=== PATIENT | female | born 1945 | race African-American/Black ===

== ENCOUNTER 2018-03-12 07:37 | Day surgery (SDC) | payer MEDICARE ==
[2018-03-10 11:14] VITALS: BMI 29.1
[~2018-03-12 07:37] MED LIST: LACTATED RINGERS 1,000 ML IV SCH
[2018-03-12] MEDS ORDERED: LIDOCAINE 1% 20 ML VIAL (10MG/ML) FOR IV START INTRADERMA ONE (08:29)
[2018-03-12 08:31] VITALS: RESP 16; TEMP 98.3
[2018-03-12] MEDS ORDERED: ONDANSETRON 4 MG/2 ML VIAL IVP ONE (08:52)
[2018-03-12] MEDS ORDERED: MIDAZOLAM 2 MG/2 ML VIAL ONE (08:53)
[2018-03-12] MEDS ORDERED: fentaNYL (PF) 50 MCG/ML 2 ML AMP ONE (08:53)
[2018-03-12] MEDS ORDERED: GLYCOPYRROLATE 0.2 MG/ML 2 ML VIAL ONE (08:53)
[2018-03-12] MEDS ORDERED: PROPOFOL 10 MG/ML 20 ML VIAL IV ONE (08:53)
--- NOTE | 2018-03-12 09:08 | P.PCN ---
Date of Procedure: 03/12/18 Procedure(s) Performed: BRIEF HISTORY: Patient is a 72-year-old pleasant white female, scheduled for an elective colonoscopy as a part of evaluation of prior history of colon polyps and intermittent diarrhea. Her last colonoscopy was in May and was noted to have large polyps with a tubular adenoma. PROCEDURE PERFORMED: Colonoscopy. PREOPERATIVE DIAGNOSIS: History of colon polyps/IBS. IV sedation per Anesthesia. PROCEDURE: After informed consent was obtained, the patient, was brought into the endoscopy unit. IV sedation was administered by Anesthesia under continuous monitoring. Digital rectal examination was normal. Initially the Olympus CF- 160 flexible video colonoscope was then inserted in the rectum, gradually advanced into the cecum without any difficulty. Careful examination was performed as the scope was gradually being withdrawn. Ileocecal valve and the appendiceal orifice were visualized and appeared normal. Prep was excellent. Mucosa of the cecum, ascending colon, transverse colon, descending colon, sigmoid colon, and rectum appeared normal. Scattered sigmoid diverticula seen. Retroflexion was performed in the rectum and small internal hemorrhoids were seen. The patient tolerated the procedure well. IMPRESSION: Normal-appearing colon from rectum to cecum with no evidence of colorectal neoplasia Scattered sigmoid diverticulosis Small internal hemorrhoids. RECOMMENDATIONS: Findings of this examination were discussed with the patient as well as her family. She was advised to have a repeat surveillance colonoscopy in 5 years because of prior history of colon polyps.
[2018-03-12 09:27] VITALS: BP 100/64; PULSE 78
== END 2018-03-12 10:02 | disposition home or self-care (01) ==
LOC: ORWHC2ENDO 07:37
PROVIDERS: ATTEND Internal Medicine Gastroenterology
DX: K57.30 Diverticulosis of large intestine without perforation or abscess without bleeding (principal); K64.8 Other hemorrhoids; K58.9 Irritable bowel syndrome, unspecified; K21.9 Gastro-esophageal reflux disease without esophagitis; Z86.010 Personal history of colon polyps; Z79.890 Hormone replacement therapy; Z79.899 Other long term (current) drug therapy; I10 Essential (primary) hypertension; Z87.891 Personal history of nicotine dependence; Z88.7 Allergy status to serum and vaccine
CPT/HCPCS: 45378; J2250; J2405; J3010; J2704

== ENCOUNTER → 2020-04-01 | Outpatient (CLI) | payer MEDICARE ==
--- NOTE | 2020-04-04 08:42 | MM ---
Reason for exam: screening (asymptomatic). Last mammogram was performed 13 years and 7 months ago. History: Patient is postmenopausal. Took hormonal contraceptives for 10 years beginning at age 21. Took estrogen for 1 year beginning at age 56. Took progesterone for 1 year beginning at age 56. Physical Findings: A clinical breast exam by your physician is recommended on an annual basis and results should be correlated with mammographic findings. MG 3D Screening Mammo W/Cad Bilateral CC and MLO view(s) were taken. Prior study comparison: August 22, 2006, bilateral screening mammogram w/CAD. June 27, 2005, bilateral screening mammogram w/CAD. The breast tissue is heterogeneously dense. This may lower the sensitivity of mammography. Benign appearing bilateral calcifications. No significant changes when compared with prior studies. ASSESSMENT: Benign, BI-RAD 2 RECOMMENDATION: Routine screening mammogram of both breasts in 1 year.
== END | disposition home or self-care (01) ==
LOC: RADMAMWWP 11:02
PROVIDERS: ATTEND Obstetrics & Gynecology
DX: Z12.31 Encounter for screening mammogram for malignant neoplasm of breast (principal)
CPT/HCPCS: 77063; 77067

== ENCOUNTER 2020-10-18 19:13 | Inpatient (IN) | payer MEDICARE ==
[2020-10-18] MEDS ORDERED: SODIUM CHLORIDE 0.9% 1,000 ML IV STA (19:16)
--- NOTE | 2020-10-18 19:19 | ED ---
General Adult HPI - General Stated complaint: STEMI Time Seen by Provider: 10/18/20 19:15 - History of Present Illness Initial comments: Dictation was produced using [employer] dictation software. please excuse any grammatical, word or spelling errors. This patient was cared for during a federal and state declared state of emergency secondary to Covid 19 Chief Complaint: 75-year-old male presents with ST segment elevation ND History of Present Illness: Patient is a 75-year-old female she has past medical history of hypertension diabetes disease asthma. She is brought in by EMS for acute ST segment elevation ND. Patient was at home proximal upper to arrival when she developed like sensation of a 50 pound pressure on her chest. She does report associated nausea, vomiting and diaphoresis. His pain radiates to her back. She denies any numbness and with paresthesias to the arms or legs. She denies any history of coronary artery disease. She feels mildly short of breath. She received aspirin and nitro by prehospital providers. The ROS documented in this emergency department record has been reviewed and confirmed by me. Those systems with pertinent positive or negative responses have been documented in the HPI. All other systems are other negative and/or noncontributory. PHYSICAL EXAM: General Impression: Alert and oriented x3, distress secondary to pain HEENT: Normocephalic atraumatic, extra-ocular movements intact, pupils equal and reactive to light bilaterally, mucous membranes moist. Cardiovascular: Heart regular rate and rhythm no murmurs Chest: Able to complete full sentences, no retractions, no tachypnea Abdomen: abdomen soft, non-tender, non-distended, no organomegaly Musculoskeletal: Pulses present and equal in all extremities, no peripheral edema Motor: no focal deficits noted Neurological: CN II-XII grossly intact, no focal motor or sensory deficits noted Skin: Intact with no visualized rashes Psych: Normal affect and mood ED course: 75-year-old male presents to the emergency department for ST segment elevation ND. She has no features of acute aortic dissection. As upon arrival are within acceptable limits. Prehospital EKGs were reviewed showing inferior myocardial infarction. Code STEMI was activated prior to patient's arrival. Right-sided EKG showed no ST elevations in the right-sided lateral precordial leads. Patient's ST segment elevation ND appears to be inferior. Patient ordered for Nitropaste. Case was discussed with Dr. Peterson reviewed EKG immediately after EKG was performed. No suspicion of acute aortic dissection. She has normal and symmetrical pulses in her bilateral upper extremities she is nonhypertensive she does not have any signs of cardiac and not and she does not describe sharp chest pain. Chest x- ray shows no acute processes. Patient be disposition to pharmaceutical laboratory technician emergently for cardiac catheterization likely percutaneous intervention. Patient be admitted to [facility] physician Dr. Wright. EKG interpretation: Ventricular rate 65, normal sinus rhythm,. Interval and 60, QRS 80, QTC 372. No WI prolongation, no QTC prolongation, ST segment elevation in inferior leads with cervical changes and high lateral leads and - Related Data Home Medications Medication Instructions Recorded Confirmed Albuterol Inhaler (Mhu) [Ventolin 2 puff INHALATION DIRECTED PRN 05/03/14 03/12/18 Hfa Inhaler (Mhu)] Levothyroxine Sodium [Synthroid] 100 mcg PO QAM 05/03/14 03/10/18 Dicyclomine [Bentyl] 10 mg PO TID 03/10/18 03/10/18 Omeprazole 20 mg PO AC-BRKFST 03/10/18 03/10/18 Spironolactone 50 mg PO DAILY 03/10/18 03/10/18 Valsartan/Hydrochlorothiazide 1 each PO DAILY 03/10/18 03/10/18 [Valsartan-Hctz 320-25 mg Tab] Allergies Allergy/AdvReac Type Severity Reaction Status Date / Time Tetanus Vaccines and Toxoid Allergy Rash/Hives Verified 10/18/20 19:19 [Tetanus Vaccines & Toxoid] Review of Systems ROS Statement: Those systems with pertinent positive or pertinent negative responses have been documented in the HPI. ROS Other: All systems not noted in ROS Statement are negative. Past Medical History Past Medical History: Asthma, GERD/Reflux, Hypertension, Thyroid Disorder History of Any Multi-Drug Resistant Organisms: None Reported Past Surgical History: Appendectomy, Cholecystectomy, Hysterectomy, Joint Replacement Additional Past Surgical History / Comment(s): THYROIDECTOMY; R Knee replacement Past Anesthesia/Blood Transfusion Reactions: Postoperative Nausea & Vomiting (PONV) Past Psychological History: No Psychological Hx Reported Past Alcohol Use History: Occasional Additional Past Alcohol Use History / Comment(s): QUIT SMOKING 1974 SMOKED FOR 10 YRS OF AND OFF Past Drug Use History: None Reported - Past Family History Mother Family Medical History: No Reported History Course Vital Signs 10/18/20 10/18/20 19:17 19:33 Temperature 98.6 F Pulse Rate 80 80 Respiratory 18 18 Rate Blood Pressure 115/76 130/76 O2 Sat by Pulse 96 97 Oximetry Medical Decision Making - Lab Data Result diagrams: 10/18/20 19:21 Lab Results 10/18/20 Range/Units 19:21 WBC 14.4 H (3.8-10.6) k/uL RBC 4.93 (3.80-5.40) m/uL Hgb 13.8 (11.4-16.0) gm/dL Hct 43.5 (34.0-46.0) % MCV 88.3 (80.0-100.0) fL MCH 28.0 (25.0-35.0) pg MCHC 31.7 (31.0-37.0) g/dL RDW 13.9 (11.5-15.5) % Plt Count 329 (150-450) k/uL MPV 8.1 Neutrophils % 52 % Lymphocytes % 39 % Monocytes % 5 % Eosinophils % 1 % Basophils % 1 % Neutrophils # 7.5 (1.3-7.7) k/uL Lymphocytes # 5.6 H (1.0-4.8) k/uL Monocytes # 0.7 (0-1.0) k/uL Eosinophils # 0.2 (0-0.7) k/uL Basophils # 0.1 (0-0.2) k/uL Disposition Clinical Impression: ST elevation myocardial infarction (STEMI) Disposition: ADMITTED IP TO THIS HOSP Condition: Critical Referrals: Jj Coronado MD [Primary Care Provider] - 1-2 days Decision Time: 19:38
[2020-10-18] MEDS ORDERED: NITROGLYCERIN OINT 1 INCH/GM PACKET TOPICAL STA (19:25)
[2020-10-18 19:28] LABS: Basophils # (A) 0.1 k/uL (0-0.2); Basophils % (A) 1 %; Eosinophils # (A) 0.2 k/uL (0-0.7); Eosinophils % (A) 1 %; HCT 43.5 % (34.0-46.0); HGB 13.8 gm/dL (11.4-16.0); Lymphocytes # (A) 5.6 k/uL (1.0-4.8); Lymphocytes % (A) 39 %; MCHC 31.7 g/dL (31.0-37.0); MCV 88.3 fL (80.0-100.0); Mean Platelet Volume 8.1; Monocytes # (A) 0.7 k/uL (0-1.0); Monocytes % (A) 5 %; Neutrophils # (A) 7.5 k/uL (1.3-7.7); Neutrophils % (A) 52 %; Platelet Count 329 k/uL (150-450); RBC 4.93 m/uL (3.80-5.40); RDW 13.9 % (11.5-15.5); WBC 14.4 k/uL (3.8-10.6)
[2020-10-18] MEDS ORDERED: NALOXONE 0.4 MG/ML 1 ML VIAL IV PRN (19:28)
[2020-10-18] MEDS ORDERED: HEPARIN SODIUM 1,000 UN/ML (10ML VL) IV PRN (19:29)
[2020-10-18] MEDS ORDERED: HEPARIN SODIUM 1,000 UN/ML (10ML VL) IV ONE (19:29)
[2020-10-18] MEDS ORDERED: LIDOCAINE 1% INJ 10MG/ML (20 ML MDV) ONE (19:33)
[2020-10-18] MEDS ORDERED: VERAPAMIL 2.5 MG/ML 2 ML AMP ONE (19:34)
[2020-10-18] MEDS ORDERED: IV FLUID CONTINUATION 300 ML IV ONE (19:39)
[2020-10-18] MEDS ORDERED: SODIUM CHLORIDE 0.9% 500 ML 500 ML IV ONE (19:40)
[2020-10-18 19:41] LABS: Albumin 3.8 g/dL (3.5-5.0); Calcium 9.3 mg/dL (8.4-10.2); Partial Thromboplastin Time 22.9 sec (22.0-30.0); Prothrombin Time 10.3 sec (9.0-12.0); Total Bilirubin 0.4 mg/dL (0.2-1.3); Total Protein 6.5 g/dL (6.3-8.2)
[2020-10-18] MEDS ORDERED: fentaNYL (PF) 50 MCG/ML 2 ML AMP IV ONE (19:50)
[2020-10-18] MEDS ORDERED: fentaNYL (PF) 50 MCG/ML 2 ML AMP ONE (19:51)
[2020-10-18] MEDS: LIDOCAINE 1% INJ 10MG/ML (20 ML MDV) SQ ONE ×2 (19:52→19:59)
[2020-10-18] MEDS ORDERED: MIDAZOLAM 2 MG/2 ML VIAL IV ONE ×2 (19:52)
[2020-10-18] MEDS ORDERED: VERAPAMIL SYRINGE (5 MG/10 ML) INTRAARTER ONE (19:53)
[2020-10-18] MEDS ORDERED: BIVALIRUDIN 250 MG in SODIUM CHLORIDE 0.9% 50 ML IV ONE (20:08)
[2020-10-18] MEDS ORDERED: BIVALIRUDIN BOLUS 250 MG/50 ML IV ONE (20:08)
[2020-10-18] MEDS ORDERED: CLOPIDOGREL 75 MG TAB PO ONE (20:09)
[2020-10-18] MEDS ORDERED: CLOPIDOGREL 75 MG TAB ONE (20:09)
--- NOTE | 2020-10-18 20:14 | XR ---
EXAMINATION TYPE: XR chest 1V portable DATE OF EXAM: 10/18/2020 HISTORY: Shortness of breath. COMPARISON: None. TECHNIQUE: Single view of the chest is submitted. FINDINGS: Demonstrated are scattered senescent parenchymal change. There is no evidence for focal infiltrate. The heart is stable. Hilar and mediastinal structures are within normal limits. Degenerative changes are seen of the dorsal spine. IMPRESSION: 1. Chronic changes without evidence for acute pulmonary disease.
--- NOTE | 2020-10-18 20:14 | P.CRDCN ---
History of Present Illness Consult date: 10/18/20 History of present illness: This is a 75-year-old female with history of hypertension and hypothyroidism who was brought to the emergency room with complaints of chest pain about an hour prior to admission. EKG showed acute ST-T changes consistent with inferior wall IL. Patient is still having severe chest pain. She was advised to have cardiac catheterization with the intention of primary intervention. Most of previous myocardial infarction. No history of known CVA. Most of the information is gathered from patient's chart and the ER physicians the medication. At the time of my examination patient is on the table still complaining of severe pain, in the clinical laboratory director. Review of Systems Not obtained Past Medical History Past Medical History: Asthma, GERD/Reflux, Hypertension, Thyroid Disorder History of Any Multi-Drug Resistant Organisms: None Reported Past Surgical History: Appendectomy, Cholecystectomy, Hysterectomy, Joint Replacement Additional Past Surgical History / Comment(s): THYROIDECTOMY; R Knee replacement Past Anesthesia/Blood Transfusion Reactions: Postoperative Nausea & Vomiting (PONV) Past Psychological History: No Psychological Hx Reported Past Alcohol Use History: Occasional Additional Past Alcohol Use History / Comment(s): QUIT SMOKING 1974 SMOKED FOR 10 YRS OF AND OFF Past Drug Use History: None Reported - Past Family History Mother Family Medical History: No Reported History Medications and Allergies Home Medications Medication Instructions Recorded Confirmed Type Levothyroxine Sodium [Synthroid] 100 mcg PO QAM 05/03/14 10/18/20 History Dicyclomine [Bentyl] 10 mg PO TID PRN 03/10/18 10/18/20 History Albuterol Sulfate [Ventolin HFA] 2 puff INHALATION RT-Q6H PRN 10/18/20 10/18/20 History Amitriptyline HCl 25 mg PO HS 10/18/20 10/18/20 History Valsartan/Hydrochlorothiazide 1 tab PO DAILY 10/18/20 10/18/20 History [Diovan Hct 320-12.5 mg Tab] Allergies Allergy/AdvReac Type Severity Reaction Status Date / Time Tetanus Vaccines and Toxoid Allergy Rash/Hives Verified 10/18/20 19:38 [Tetanus Vaccines & Toxoid] Physical Exam Vitals: Vital Signs Temp Pulse Resp BP Pulse Ox 10/18/20 19:33 80 18 130/76 97 10/18/20 19:17 98.6 F 80 18 115/76 96 Intake and Output 04/20/21 04/20/21 04/20/21 06:59 14:59 22:59 Other: Weight 79.832 kg GENERAL EXAM: Patient is alert and oriented and in [place] distress HEENT: Normocephalic. Normal reaction of pupils, equal size, normal range of extraocular motion. No erythema or exudates in the throat. NECK: No masses, no nuchal rigidity. CHEST: No chest wall deformity. LUNGS: Equal air entry with no crackles or wheeze. HEART: S1 and S2 normal with no audible mumurs or gallops. Regular rhythm, femorals equal on both sides.. ABDOMEN: Soft SKIN: No rashes CENTRAL NERVOUS SYSTEM: No focal deficits. EXTREMITIES: No cyanosis, clubbing or edema. Results 10/18/20 19:21 10/18/20 19:21 Cardiac Enzymes 10/18/20 10/18/20 Range/Units 19:21 19: AST 25 (14-36) U/L Troponin I <0.012 (0.000-0.034) ng/mL Coagulation 10/18/20 Range/Units 19:21 PT 10.3 (9.0-12.0) sec APTT 22.9 (22.0-30.0) sec CBC 10/18/20 Range/Units 19:21 WBC 14.4 H (3.8-10.6) k/uL RBC 4.93 (3.80-5.40) m/uL Hgb 13.8 (11.4-16.0) gm/dL Hct 43.5 (34.0-46.0) % Plt Count 329 (150-450) k/uL Comprehensive Metabolic Panel 10/18/20 Range/Units 19:21 Sodium 135 L (137-145) mmol/L Potassium 4.0 (3.5-5.1) mmol/L Chloride 102 (98-107) mmol/L Carbon Dioxide 26 (22-30) mmol/L BUN 17 (7-17) mg/dL Creatinine 1.36 H (0.52-1.04) mg/dL Glucose 134 H (74-99) mg/dL Calcium 9.3 (8.4-10.2) mg/dL AST 25 (14-36) U/L ALT 17 (4-34) U/L Alkaline Phosphatase 62 (38-126) U/L Total Protein 6.5 (6.3-8.2) g/dL Albumin 3.8 (3.5-5.0) g/dL Current Medications Generic Name Dose Route Start Last Admin Trade Name Freq PRN Reason Stop Dose Admin Heparin Sodium (Porcine) 0 unit 10/18/20 19:29 Heparin Sodium 1,000 Un/Ml (10ml Vl) IV PER PROTOCOL PRN Low PTT Protocol Sodium Chloride 1,000 mls @ 999 mls/hr 10/18/20 19:16 10/18/20 19:24 Saline 0.9% IV 10/18/20 20:16 999 mls/hr .Q1H1M STA Administration Heparin Sodium/Sodium Chloride 250 mls @ 9.58 mls/hr 10/18/20 20:00 25,000 unit/ Sodium Chloride IV .Q24H ANITA Protocol 12 UNITS/KG/HR Naloxone HCl 0.2 mg 10/18/20 19:28 Naloxone 0.4 Mg/Ml 1 Ml Vial IV Q2M PRN Opioid Reversal Intake and Output 10/18/20 10/18/20 10/18/20 06:59 14:59 22:59 Other: Weight 79.832 kg Patient Weight 10/19/20 06:59 Weight 79.832 kg 10/18/20 19:21 10/18/20 19:21 EKG Interpretations (text) Acute inferior wall IL Assessment and Plan (1) Essential hypertension Current Visit: Yes Status: Acute Code(s): I10 - ESSENTIAL (PRIMARY) HYPERTENSION SNOMED Code(s): 47532563 (2) Asthma Current Visit: Yes Status: Acute Code(s): J45.909 - UNSPECIFIED ASTHMA, UNCOMPLICATED SNOMED Code(s): 194097281 (3) ST elevation myocardial infarction (STEMI) Current Visit: Yes Status: Acute Code(s): I21.3 - ST ELEVATION (STEMI) MYOCARDIAL INFARCTION OF [facility] SITE SNOMED Code(s): 92903377 (4) Hypothyroidism Current Visit: Yes Status: Acute Code(s): E03.9 - HYPOTHYROIDISM, UNSPECIFIED SNOMED Code(s): 60451321 Plan: Proceed with a cardiac catheterization with the intention of primary intervention. Prognosis guarded
[2020-10-18] MEDS ORDERED: NITROGLYCERIN 1000MCG/10ML SYRINGE INTRACORON ONE (20:18)
--- NOTE | 2020-10-18 20:19 | P.CARDCATH ---
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 History of hypertension, asthma, hypothyroidism CONSENT:I have discussed the risks, benefits and alternative therapies for the above-mentioned procedure and for both sedation/analgesia as well as necessary blood product administration, if indicated, as they pertain to this patient. The patient has indicated understanding and acceptance of the risks and procedures discussed. PROCEDURE: Patient was brought to the lab in a fasting state. Patient was given some IV sedation. The right wrist is heparin and draped in the usual fashion. The right radial artery was entered using Seldinger technique and a sheath was left in place. Attempts were made to advance the right coronary artery. Because of tortuosity right coronary artery could not be engaged. The procedure was abandoned from right radial approach and completed from right femoral approach. Hemostasis was obtained with TR band The right groin is infiltrated with lidocaine and right femoral artery was entered using Seldinger technique. A 6-Peruvian catheter was left in place and selective coronary arteriography was performed. Patient tolerated the procedure well. She was found to have total occlusion of RCA. She went on to have stent placement by Dr. Smith Conscious Sedation: Versed 1mg Fentanyl 50 g Duration 15minutes HEMODYNAMICS: The aortic pressure is about 140/80. Left ventricular end- diastolic pressure is not measured SELECTIVE CORONARY ARTERIOGRAPHY: LEFT MAIN: Normal length and patent THE LEFT ANTERIOR DESCENDING CORONARY ARTERY: Fair caliber vessel giving rise to good-sized diagonal branch. There appears to be mild disease in the origin of the diagonal branch. The rest of the LAD is free of significant occlusive disease THE LEFT CIRCUMFLEX AND IS CORONARY ARTERY: Is a moderate caliber vessel giving rise to good-sized first OM and and moderate to good-sized second OM branch. The circumflex and its branches are free of any significant occlusive disease THE RIGHT CORONARY ARTERY:. This is a moderate caliber vessel, totally occluded in the midportion LEFT VENTRICULOGRAPHY: Performed FINAL IMPRESSION: Total occlusion of mid RCA. Mild disease in the mid LAD PLAN: Stent placement of the RCA followed by maximum medical therapy PROGNOSIS:. Fair with successful therapy
[2020-10-18] MEDS ORDERED: IOPAMIDOL-370 125ML BTL INJ ONE (20:24)
[2020-10-18] MEDS ORDERED: IOPAMIDOL-370 100ML BTL INJ ONE (20:28)
[2020-10-18] MEDS ORDERED: NITROGLYCERIN SL TABS 0.4 MG TAB SUBLINGUAL PRN (20:40)
[2020-10-18] MEDS ORDERED: RX INFO: IV CONTRAST WAS GIVEN 1 EACH MISC MISCELLANE PRN (20:40)
[2020-10-18] MEDS ORDERED: MAG HYDROX/AL HYDROX/SIMETH 30 ML CUP PO PRN (20:40)
[2020-10-18] MEDS ORDERED: ATROPINE SULFATE 0.1 MG/ML 10ML SYRINGE IV PRN (20:40)
[2020-10-18] MEDS ORDERED: ZOLPIDEM 5 MG TAB PO PRN (20:40)
[2020-10-18] MEDS ORDERED: SODIUM CHLORIDE 0.9% 1,000 ML IV SCH (20:45)
[2020-10-18] MEDS ORDERED: CLOPIDOGREL 75 MG TAB PO SCH (21:00)
[2020-10-18 21:03] LABS: Glucose,Whole Blood 134 mg/dL (75-99)
--- NOTE | 2020-10-18 21:36 | PTCA ---
PERCUTANEOUSTRANS CORORONARY ANGIOGRAPHY DATE OF SERVICE: 10/18/2020. PERFORMING PHYSICIAN: Jose A Javed MD. PROCEDURE PERFORMED: 1. Successful stenting of the mid right coronary artery using 3.25 x 33 mm Xience drug- eluting stent with an excellent angiographic results. 2. Successful stenting of the proximal right coronary artery using 3.5 x 18 mm Xience drug-eluting stent with an excellent angiographic results. 3. Left heart catheterization. 4. Right common femoral artery angiogram. INDICATION: This is a 75-year-old female patient who presented to the hospital with chest discomfort and was diagnosed with acute inferior ST-elevation myocardial infarction. She underwent an emergent heart catheterization by Dr. Neal and was found to have occluded RCA in the midportion distal to the takeoff of the acute marginal branch. Because of that, an emergent PCI was advised. APPROACH: Right common femoral artery. COMPLICATION: None. LEVEL OF SEDATION: Moderate with sedation length of 24 minutes. Door to balloon is 64 minutes. PROCEDURE DESCRIPTION: After obtaining informed consent, the patient was brought to the cardiac tin can laborer. Please refer to the diagnostic heart catheterization was performed by Dr. Neal earlier today. Anticoagulation was initiated using Angiomax. Subsequently I did engage the right coronary artery using JR4 guide. I did wire it using a run-through wire. After that PTCA ballooning was performed using 3.0 x 15 mm balloon. After that I did stenting of the mid RCA using 3.25 x 33 and for the proximal 3.5 x 18 mm. Both stents were Xience drug-eluting stent and both were deployed under 18 atmospheres for 20 seconds. The following angiogram showed excellent angiographic results and the procedure was completed without any complication. Please note that the JR4 guide crossed the aortic valve and I did pullback across the valve after flushing the guide. The procedure was completed without any complication. LEFT HEART CATHETERIZATION: The LVEDP was 24 mmHg without significant gradient across aortic valve. POSTPROCEDURE MANAGEMENT: 1. Dual anti-platelet therapy. 2. Risk factor modifications. 3. Follow up with the patient. MMODL / IJN: [id number] /
[2020-10-18] MEDS: HEPARIN SOD,PORK IN 0.45% NACL 25,000 UNIT in 0.45% NACL 1 250ML.BAG IV SCH (21:44)
[2020-10-18] MEDS: ATORVASTATIN 80 MG TAB PO SCH (21:45)
[2020-10-18] MEDS: METOPROLOL TARTRATE 25 MG TAB PO SCH (21:45)
--- NOTE | 2020-10-19 03:54 | P.HPIM ---
History of Present Illness H&P Date: 10/18/20 Chief Complaint: chest pain 75 year old female with hypertension ,hypothyroid patient experienced sudden onset chest pain , described as heavy pressure retrosternal , 10/10 in severity , associated with sweating, feeling sick , nausea and vomiting, she initially thought its a stomach upset, as she was watching TV and eating chips. she took some anti acids , with no much benefit , she grew more concerned, pain was not radiating to her back , but was not going away. as pain getting worse, and now associated with SOB, she decided to call EMS and go to the ED. 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 pain improved after the procedure, and patient currently feels well , admitted to the ICU for monitoring . patient denies any history of CAD She otherwise denies any symptoms of upper respiratory infection, denies any fevers or chills, denies any history of GI bleeding Review of Systems Pertinent positives as noted in HPI. All other systems were reviewed and are negative Past Medical History Past Medical History: Asthma, GERD/Reflux, Hypertension, Thyroid Disorder History of Any Multi-Drug Resistant Organisms: None Reported Past Surgical History: Appendectomy, Cholecystectomy, Hysterectomy, Joint Replacement Additional Past Surgical History / Comment(s): THYROIDECTOMY; R Knee replacement Past Anesthesia/Blood Transfusion Reactions: Postoperative Nausea & Vomiting (PONV) Past Psychological History: No Psychological Hx Reported Past Alcohol Use History: Occasional Additional Past Alcohol Use History / Comment(s): QUIT SMOKING 1974 SMOKED FOR 10 YRS OF AND OFF Past Drug Use History: None Reported - Past Family History Mother Family Medical History: No Reported History Medications and Allergies Home Medications Medication Instructions Recorded Confirmed Type Levothyroxine Sodium [Synthroid] 100 mcg PO QAM 05/03/14 10/18/20 History Dicyclomine [Bentyl] 10 mg PO TID PRN 03/10/18 10/18/20 History Albuterol Sulfate [Ventolin HFA] 2 puff INHALATION RT-Q6H PRN 10/18/20 10/18/20 History Amitriptyline HCl 25 mg PO HS 10/18/20 10/18/20 History Valsartan/Hydrochlorothiazide 1 tab PO DAILY 10/18/20 10/18/20 History [Diovan Hct 320-12.5 mg Tab] Allergies Allergy/AdvReac Type Severity Reaction Status Date / Time Tetanus Vaccines and Toxoid Allergy Rash/Hives Verified 10/18/20 19:38 [Tetanus Vaccines & Toxoid] Physical Exam Vitals: Vital Signs Temp Pulse Resp BP Pulse Ox 10/18/20 19:33 80 18 130/76 97 10/18/20 19:17 98.6 F 80 18 115/76 96 Intake and Output 10/18/20 10/18/20 10/18/20 06:59 14:59 22:59 Intake Total 179.06 Balance 179.06 Intake: IV 179.06 Other: Weight 79.832 kg Constitutional: No acute distress, conversant, pleasant Eyes: Anicteric sclerae, moist conjunctiva, Pupils equal round reactive to light ENMT: NC/AT Oropharynx clear, no erythema, or exudates Neck: Supple, FROM, no masses, or JVD No carotid bruits No thyromegaly Lungs: Clear to auscultation Clear to percussion Normal respiratory effort, no accessory muscle use Cardiovascular: Heart regular in rate and rhythm, No murmurs, gallops, or rubs No peripheral edema Abdominal: Soft Nontender, no guarding, rebound or rigidity Abdomen moving with respiration Normoactive bowel sounds No hepatomegaly, No splenomegaly No palpable mass No abdominal wall hernia noted Skin: Normal temperature, tone, texture, turgor No induration No subcutaneous nodules No rash, lesions No ulcers Extremities: Right groin access for left heart cath, area looks soft, distal pulses are positive, no bleeding, minimal bruising at this time No digital cyanosis No clubbing Pedal pulses intact and symmetrical Radial pulses intact and symmetrical No calf tenderness Psychiatric: Alert and oriented to person, place and time Appropriate affect fair judgement Neuro Muscles Strength 5/5 in all 4 extremities Sensation to light touch grossly present throughout Cranial nerves II-XII grossly intact No focal sensory deficits Lymphatics: no palpable cervical or supraclavicular , or inguinal lymph nodes Results CBC & Chem 7: 10/18/20 19:21 10/18/20 19:21 Labs: Abnormal Lab Results - Last 24 Hours (Table) 10/18/20 10/18/20 Range/Units 19:21 19:21 WBC 14.4 H (3.8-10.6) k/uL Lymphocytes # 5.6 H (1.0-4.8) k/uL Sodium 135 L (137-145) mmol/L Creatinine 1.36 H (0.52-1.04) mg/dL Glucose 134 H (74-99) mg/dL Assessment and Plan Assessment: Inferior STEMI status post stent to the RCA Aspirin, statin, Plavix Followed by cardiology Management in the ICU for close monitoring Blood pressure control Intermittent asthma When necessary breathing treatments as needed Resume inhalers, resume Singulair Hypothyroid Resume levothyroxine CODE STATUS:full code DVT prophylaxis: heparin sc Discussed with: Patient, ER, RN Anticipated length of stay > than [address]: home A total of 65 minutes was spent on the care of this complex patient more than 50% of the time was spent in counseling and care coordination.
[2020-10-19 04:04] LABS: Basophils % (A) 0 %; Eosinophils # (A) 0.1 k/uL (0-0.7); Eosinophils % (A) 0 %; HGB 13.4 gm/dL (11.4-16.0); Lymphocytes # (A) 2.1 k/uL (1.0-4.8); Lymphocytes % (A) 16 %; MCH 28.6 pg (25.0-35.0); MCHC 32.8 g/dL (31.0-37.0); MCV 87.3 fL (80.0-100.0); Mean Platelet Volume 7.8; Monocytes # (A) 0.7 k/uL (0-1.0); Monocytes % (A) 5 %; Neutrophils # (A) 10.3 k/uL (1.3-7.7); Neutrophils % (A) 77 %; Platelet Count 269 k/uL (150-450); RDW 13.6 % (11.5-15.5); WBC 13.3 k/uL (3.8-10.6)
[2020-10-19 04:25] LABS: Albumin 3.4 g/dL (3.5-5.0); Calcium 8.8 mg/dL (8.4-10.2); Potassium 3.9 mmol/L (3.5-5.1); Total Bilirubin 0.5 mg/dL (0.2-1.3); Total Protein 5.9 g/dL (6.3-8.2)
[2020-10-19] MEDS: METOPROLOL TARTRATE 25 MG TAB PO SCH ×2 (07:59→21:20)
[2020-10-19] MEDS: LEVOTHYROXINE 100 MCG TAB PO SCH (07:59)
[2020-10-19] MEDS ORDERED: ASPIRIN 325 MG TAB PO SCH (09:00)
[2020-10-19 10:09] VITALS: BMI 32.5
--- NOTE | 2020-10-19 11:14 | ECHOF ---
Referral Reason:STEMI MEASUREMENTS -------- HEIGHT: 165.1 cm WEIGHT: 88.5 kg BP: 139/88 RVIDd: 3.2 cm (< 3.3) IVSd: 1.3 cm (0.6 - 1.1) LVIDd: 3.5 cm (3.9 - 5.3) LVPWd: 1.3 cm (0.6 - 1.1) IVSs: 1.7 cm LVIDs: 2.5 cm LVPWs: 1.7 cm LA Diam: 3.3 cm (2.7 - 3.8) LAESV Index (A-L): 19.75 ml/m Ao Diam: 3.0 cm (2.0 - 3.7) AV Cusp: 2.1 cm (1.5 - 2.6) MV EXCURSION: 18.525 mm (> 18.000) MV EF SLOPE: 92 mm/s (70 - 150) EPSS: 0.3 cm MV E Bartolo: 1.05 m/s MV DecT: 248 ms MV A Bartolo: 1.20 m/s MV E/A Ratio: 0.88 RAP: 5.00 mmHg RVSP: 27.00 mmHg FINDINGS -------- Resting bradycardia (HR<60bpm). This was a technically good study. The left ventricular size is normal. There is mild concentric left ventricular hypertrophy. Overa ll left ventricular systolic function is low-normal with, an EF between 50 - 55 %. Basal inferior L V wall motion is hypokinetic. The right ventricle is normal in size. Normal LA size by volume 22+/-6 ml/m2. The right atrium is normal in size. Interatrial and interventricular septum intact. There is mild aortic valve sclerosis. Mild mitral annular calcification present. There is trace mitral regurgitation. Mild tricuspid regurgitation present. Right ventricular systolic pressure is normal at < 35 mmHg. There is no pulmonic regurgitation present. The aortic root size is normal. Normal inferior vena cava with normal inspiratory collapse consistent with estimated right atrial pre ssure of 5 mmHg. There is no pericardial effusion. CONCLUSIONS -------- 1. Resting bradycardia (HR<60bpm). 2. The left ventricular size is normal. 3. There is mild concentric left ventricular hypertrophy. 4. Overall left ventricular systolic function is low-normal with, an EF between 50 - 55 %. 5. Basal inferior LV wall motion is hypokinetic. 6. Mild mitral annular calcification present. 7. There is trace mitral regurgitation. 8. Mild tricuspid regurgitation present. 9. There is no pericardial effusion. SUPERVISORY HISTORIAN: Jeanne Hernandez RDCS
[2020-10-19] MEDS: HEPARIN SOD,PORK IN 0.45% NACL 25,000 UNIT in 0.45% NACL 1 250ML.BAG IV SCH (14:30)
--- NOTE | 2020-10-19 15:06 | P.PN ---
Subjective HISTORY OF PRESENTING ILLNESS 10/19/20: Patient seen and examined. Patient is a pleasant 75 year old female with history of HTN, HLD who presented with chest pain and was found to have inferior STEMI. She underwent successful PCI of the RCA with only mild disease of the left system. She denies any further chest pain or pressure. Echo performed which showed EF 50-55% with basal inferior hypokinesis. REVIEW OF SYSTEMS At the time of my exam: CONSTITUTIONAL: Complains of fatigue and weakness. Denies fever or chills. CARDIOVASCULAR: Denies chest pain, shortness of breath, orthopnea, PND or palpitations. RESPIRATORY: Denies cough. GASTROINTESTINAL: Denies abdominal pain, diarrhea, constipation, nausea or vomiting. MUSCULOSKELETAL: Denies myalgias. NEUROLOGIC: Denies numbness, tingling, headacbe or weakness. ENDOCRINE: Denies fatigue, weight change, polydipsia or polyurina. GENITOURINARY: Denies burning, hematuria or urgency with micturation. HEMATOLOGIC: Denies history of anemia or bleeding. PHYSICAL EXAMINATION Vitals reviewed CONSTITUTIONAL: No apparent distress. HEENT: Head is normocephalic. Pupils are equal, round. Mucous membranes of the mouth are dry. No JVD. No carotid bruit. CHEST EXAMINATION: Lungs are clear to auscultation. No chest wall tenderness is noted on palpation or with deep breathing. HEART EXAMINATION: Regular rate and rhythm. S1, S2 heard. No murmurs, gallops or rub. ABDOMEN: Soft, Positive bowel sounds. EXTREMITIES: 2+ peripheral pulses, no LE edema NEUROLOGIC EXAMINATION: No focal deficits noted ASSESSMENT Inferior STEMI s/p PCI of RCA 10/18/2020 Essential hypertension Hyperlipidemia Leukocytosis, likely reactive CKD, improved from baseline PLAN Patient is s/p successful PCI of RCA. EF shows plow normal EF 50-55% with only mild inferior hypokinesis. We will continue with BBlocker, dual antiplatelets for 12 months. Ok for transfer from ICU. Monitor telemetry. Objective - Vital Signs Vital signs: Vital Signs Temp 97.9 F 10/19/20 11:11 Pulse 59 L 10/19/20 13:34 Resp 16 10/19/20 11:11 BP 127/68 10/19/20 11:11 Pulse Ox 95 10/19/20 11:00 Intake & Output 10/18/20 10/19/20 10/19/20 18:59 06:59 18:59 Intake Total 809.06 705 Output Total 200 725 Balance 609.06 -20 Weight 88.8 kg 88.8 kg Intake: IV 779.06 225 Sodium Chloride 0.9% 1, 600 225 000 ml @ 75 mls/hr IV . [id number] [facility] Rx#:[id number] Oral 30 Blood Product 480 Output: Urine 200 725 Other: Voiding Method External Catheter External Catheter # Voids 1 - Labs CBC & Chem 7: 10/19/20 03:23 10/19/20 03:23 Labs: Abnormal Lab Results - Last 24 Hours (Table) 10/18/20 10/18/20 10/18/20 Range/Units 19:21 19:21 21:02 WBC 14.4 H (3.8-10.6) k/uL Neutrophils # (1.3-7.7) k/uL Lymphocytes # 5.6 H (1.0-4.8) k/uL Sodium 135 L (137-145) mmol/L Creatinine 1.36 H (0.52-1.04) mg/dL Glucose 134 H (74-99) mg/dL POC Glucose (mg/dL) 134 H (75-99) mg/dL AST (14-36) U/L Total Protein (6.3-8.2) g/dL Albumin (3.5-5.0) g/dL 10/19/20 10/19/20 Range/Units 03:23 03:23 WBC 13.3 H (3.8-10.6) k/uL Neutrophils # 10.3 H (1.3-7.7) k/uL Lymphocytes # (1.0-4.8) k/uL Sodium (137-145) mmol/L Creatinine 1.08 H (0.52-1.04) mg/dL Glucose 116 H (74-99) mg/dL POC Glucose (mg/dL) (75-99) mg/dL AST 197 H (14-36) U/L Total Protein 5.9 L (6.3-8.2) g/dL Albumin 3.4 L (3.5-5.0) g/dL
[2020-10-19 17:17] LABS: Hemoglobin A1C 5.7 % (4.0-6.0)
--- NOTE | 2020-10-19 17:25 | P.PN ---
Subjective Progress Note Date: 10/19/20 No acute events overnight Objective - Vital Signs Vital signs: Vital Signs Temp 99.1 F 10/19/20 15:11 Pulse 58 L 10/19/20 15:11 Resp 15 10/19/20 15:11 BP 102/52 10/19/20 15:11 Pulse Ox 98 10/19/20 15:11 Intake & Output 10/18/20 10/19/20 10/19/20 18:59 06:59 18:59 Intake Total 809.06 705 Output Total 200 725 Balance 609.06 -20 Weight 88.8 kg 88.8 kg Intake: IV 779.06 225 Sodium Chloride 0.9% 1, 600 225 000 ml @ 75 mls/hr IV . [id number] [facility] Rx#:[id number] Oral 30 Blood Product 480 Output: Urine 200 725 Other: Voiding Method External Catheter External Catheter # Voids 1 - Exam General: The patient is awake and alert, in no distress Eye: there is normal conjunctiva bilaterally. Neck: The neck is supple, there is no JVD. Cardiovascular: Normal S1-S2, no S3-S4, no murmurs. Respiratory: Lungs clear to auscultation bilaterally Gastrointestinal: Abdomen is soft, nontender Musculoskeletal: There is no pedal edema. Neurological:. Speech is normal. Skin: Skin is warm and dry - Labs CBC & Chem 7: 10/19/20 03:23 10/19/20 03:23 Labs: Abnormal Lab Results - Last 24 Hours (Table) 10/18/20 10/18/20 10/18/20 Range/Units 19:21 19:21 21:02 WBC 14.4 H (3.8-10.6) k/uL Neutrophils # (1.3-7.7) k/uL Lymphocytes # 5.6 H (1.0-4.8) k/uL Sodium 135 L (137-145) mmol/L Creatinine 1.36 H (0.52-1.04) mg/dL Glucose 134 H (74-99) mg/dL POC Glucose (mg/dL) 134 H (75-99) mg/dL AST (14-36) U/L Total Protein (6.3-8.2) g/dL Albumin (3.5-5.0) g/dL 10/19/20 10/19/20 Range/Units 03:23 03:23 WBC 13.3 H (3.8-10.6) k/uL Neutrophils # 10.3 H (1.3-7.7) k/uL Lymphocytes # (1.0-4.8) k/uL Sodium (137-145) mmol/L Creatinine 1.08 H (0.52-1.04) mg/dL Glucose 116 H (74-99) mg/dL POC Glucose (mg/dL) (75-99) mg/dL AST 197 H (14-36) U/L Total Protein 5.9 L (6.3-8.2) g/dL Albumin 3.4 L (3.5-5.0) g/dL Assessment and Plan Assessment: This is a 75-year-old female with past medical history noted below who presented to the emergency room with chest pain. Patient was evaluated in the ER and admitted to the hospital for further management of her medical problems noted below. 1. ST elevation [place], status post left heart catheterization with successful stent placement to the RCA. Continue optimal medical management per cardiology recommendations. Dual antiplatelet therapy with aspirin and Plavix. Echocardiogram showed preserved EF of 50-55%. 2. Stage III CKD: Creatinine appears stable. Continue to monitor closely. 3. Essential hypertension, blood pressure well-controlled with metoprolol. Home dose of valsartan/hydrochlorothiazide has been on hold 4. Hyperlipidemia: Check fasting lipid profile in the morning. Currently on Lipitor 80 mg at bedtime Patient will be transferred out of ICU today. Continue telemetry monitoring. Possible discharge tomorrow.
[2020-10-19] MEDS: ATORVASTATIN 80 MG TAB PO SCH (21:21)
[2020-10-19] MEDS: CLOPIDOGREL 75 MG TAB PO SCH (21:21)
[2020-10-20] MEDS: LEVOTHYROXINE 100 MCG TAB PO SCH (06:09)
[2020-10-20 08:07] LABS: Basophils % (A) 0 %; Eosinophils # (A) 0.1 k/uL (0-0.7); Eosinophils % (A) 1 %; HCT 39.6 % (34.0-46.0); HGB 13.3 gm/dL (11.4-16.0); Lymphocytes # (A) 2.8 k/uL (1.0-4.8); Lymphocytes % (A) 22 %; MCH 29.1 pg (25.0-35.0); MCHC 33.6 g/dL (31.0-37.0); MCV 86.7 fL (80.0-100.0); Monocytes # (A) 0.9 k/uL (0-1.0); Monocytes % (A) 7 %; Neutrophils % (A) 70 %; Platelet Count 258 k/uL (150-450); RBC 4.57 m/uL (3.80-5.40); RDW 13.8 % (11.5-15.5)
[2020-10-20 08:24] LABS: Calcium 8.9 mg/dL (8.4-10.2); Potassium 4.1 mmol/L (3.5-5.1)
--- NOTE | 2020-10-20 08:43 | P.PN ---
Subjective HISTORY OF PRESENTING ILLNESS 10/19/20: Patient seen and examined. Patient is a pleasant 75 year old female with history of HTN, HLD who presented with chest pain and was found to have inferior STEMI. She underwent successful PCI of the RCA with only mild disease of the left system. She denies any further chest pain or pressure. Echo performed which showed EF 50-55% with basal inferior hypokinesis. 10/20 Patient and seen and examined. Patient states she is followed a large pill last night and has been having indigestion, burping and some chest discomfort which feels different than her angina which brought her to the hospital. She denies any other chest pain, pressure, shortness breath. She has been off of her home antihypertensive medications and only on metoprolol with blood pressure well controlled. Asymptomatic sinus bradycardia noted. REVIEW OF SYSTEMS At the time of my exam: CONSTITUTIONAL: Complains of fatigue and weakness. Denies fever or chills. CARDIOVASCULAR: Denies chest pain, shortness of breath, orthopnea, PND or palpitations. RESPIRATORY: Denies cough. GASTROINTESTINAL: Denies abdominal pain, diarrhea, constipation, nausea or vomiting. MUSCULOSKELETAL: Denies myalgias. NEUROLOGIC: Denies numbness, tingling, headacbe or weakness. ENDOCRINE: Denies fatigue, weight change, polydipsia or polyurina. GENITOURINARY: Denies burning, hematuria or urgency with micturation. HEMATOLOGIC: Denies history of anemia or bleeding. PHYSICAL EXAMINATION Vitals reviewed CONSTITUTIONAL: No apparent distress. HEENT: Head is normocephalic. Pupils are equal, round. Mucous membranes of the mouth are dry. No JVD. No carotid bruit. CHEST EXAMINATION: Lungs are clear to auscultation. No chest wall tenderness is noted on palpation or with deep breathing. HEART EXAMINATION: Regular rate and rhythm. S1, S2 heard. No murmurs, gallops or rub. ABDOMEN: Soft, Positive bowel sounds. EXTREMITIES: 2+ peripheral pulses, no LE edema NEUROLOGIC EXAMINATION: No focal deficits noted ASSESSMENT Inferior STEMI s/p PCI of RCA 10/18/2020 Essential hypertension Hyperlipidemia Leukocytosis, likely reactive CKD, improved from baseline PLAN Patient is s/p successful PCI of RCA. EF shows plow normal EF 50-55% with only mild inferior hypokinesis. We will continue with BBlocker, dual antiplatelets for 12 months. Ok for transfer from ICU. Likely DC tomorrow morning if remains stable. Objective - Vital Signs Vital signs: Vital Signs Temp 99.2 F 10/20/20 08:07 Pulse 63 10/20/20 08:07 Resp 16 10/20/20 08:07 BP 103/62 10/20/20 08:07 Pulse Ox 92 L 10/20/20 08:07 Intake & Output 10/19/20 10/20/20 10/20/20 18:59 06:59 18:59 Intake Total 1245 Output Total 725 Balance 520 Weight 88.8 kg 82.9 kg Intake: IV 225 Sodium Chloride 0.9% 1, 225 000 ml @ 75 mls/hr IV . [id number] [facility] Rx#:[id number] Oral 540 Blood Product 480 Output: Urine 725 Other: Voiding Method External Catheter External Catheter # Voids 1 2 - Labs CBC & Chem 7: 10/20/20 07:29 10/20/20 07:29 Labs: Abnormal Lab Results - Last 24 Hours (Table) 10/20/20 10/20/20 Range/Units 07:29 07:29 WBC 13.0 H (3.8-10.6) k/uL Neutrophils # 9.0 H (1.3-7.7) k/uL Sodium 136 L (137-145) mmol/L Creatinine 1.15 H (0.52-1.04) mg/dL Glucose 106 H (74-99) mg/dL Triglycerides 169 H (<150) mg/dL Cholesterol 226 H (<200) mg/dL LDL Cholesterol, Calc 158 H (0-99) mg/dL HDL Cholesterol 34 L (40-60) mg/dL
[2020-10-20] MEDS: METOPROLOL TARTRATE 25 MG TAB PO SCH ×2 (09:28→20:39)
[2020-10-20] MEDS: ASPIRIN 81 MG PO SCH (09:29)
[2020-10-20] MEDS ORDERED: CALCIUM CARBONATE 500 MG CHEWABLE PO PRN (14:04)
--- NOTE | 2020-10-20 14:17 | P.PN ---
Subjective Progress Note Date: 10/20/20 Patient is doing well today. No acute events overnight. Objective - Vital Signs Vital signs: Vital Signs Temp 98.8 F 10/20/20 13:37 Pulse 63 10/20/20 13:37 Resp 16 10/20/20 13:37 BP 113/63 10/20/20 13:37 Pulse Ox 97 10/20/20 13:37 Intake & Output 10/19/20 10/20/20 10/20/20 18:59 06:59 18:59 Intake Total 1245 240 Output Total 725 Balance 520 240 Weight 88.8 kg 82.9 kg Intake: IV 225 Sodium Chloride 0.9% 1, 225 000 ml @ 75 mls/hr IV . [id number] [facility] Rx#:[id number] Oral 540 240 Blood Product 480 Output: Urine 725 Other: Voiding Method External Catheter External Catheter Toilet # Voids 1 2 1 - Exam General: The patient is awake and alert, in no distress Eye: there is normal conjunctiva bilaterally. Neck: The neck is supple, there is no JVD. Cardiovascular: Normal S1-S2, no S3-S4, no murmurs. Respiratory: Lungs clear to auscultation bilaterally Gastrointestinal: Abdomen is soft, nontender Musculoskeletal: There is no pedal edema. Neurological:. Speech is normal. Skin: Skin is warm and dry - Labs CBC & Chem 7: 10/20/20 07:29 10/20/20 07:29 Labs: Abnormal Lab Results - Last 24 Hours (Table) 10/20/20 10/20/20 Range/Units 07:29 07:29 WBC 13.0 H (3.8-10.6) k/uL Neutrophils # 9.0 H (1.3-7.7) k/uL Sodium 136 L (137-145) mmol/L Creatinine 1.15 H (0.52-1.04) mg/dL Glucose 106 H (74-99) mg/dL Triglycerides 169 H (<150) mg/dL Cholesterol 226 H (<200) mg/dL LDL Cholesterol, Calc 158 H (0-99) mg/dL HDL Cholesterol 34 L (40-60) mg/dL Assessment and Plan Assessment: This is a 75-year-old female with past medical history noted below who presented to the emergency room with chest pain. Patient was evaluated in the ER and admitted to the hospital for further management of her medical problems noted below. 1. ST elevation [place], status post left heart catheterization with successful stent placement to the RCA. Continue optimal medical management per cardiology recommendations. Dual antiplatelet therapy with aspirin and Plavix. Echocardiogram showed preserved EF of 50-55%. 2. Stage III CKD: Creatinine appears stable. Continue to monitor closely. 3. Essential hypertension, blood pressure well-controlled with metoprolol. Home dose of valsartan/hydrochlorothiazide has been on hold 4. Hyperlipidemia: fasting lipid profile showed total cholesterol of 220 and LDL of 158. Currently on Lipitor 80 mg at bedtime Continue telemetry monitoring. Possible discharge tomorrow.
[2020-10-20] MEDS: HEPARIN SOD,PORK IN 0.45% NACL 25,000 UNIT in 0.45% NACL 1 250ML.BAG IV SCH (20:32)
[2020-10-20] MEDS: CLOPIDOGREL 75 MG TAB PO SCH (20:39)
[2020-10-20] MEDS: ATORVASTATIN 80 MG TAB PO SCH (20:40)
[2020-10-20 20:48] VITALS: RESP 16
[2020-10-21] MEDS: LEVOTHYROXINE 100 MCG TAB PO SCH (05:44)
[2020-10-21] MEDS: METOPROLOL TARTRATE 25 MG TAB PO SCH (08:53)
[2020-10-21] MEDS: ASPIRIN 81 MG PO SCH (08:53)
--- NOTE | 2020-10-21 10:12 | P.DS ---
Providers Date of admission: 10/18/20 19:54 Expected date of discharge: 10/21/20 Attending physician: Kwaku Bell MD Consults: 10/18/20 19:16 Consult Physician Stat Consulting Provider: Doris Chanel Consult Reason/Comments: STEMI ACTIVATION COMPLETE Do you want consulting provider notified?: Yes 10/18/20 20:40 Consult Physician Routine Consulting Provider: Cardiology Darío Consult Reason/Comments: Post Interventional patient Do you want consulting provider notified?: Already Contacted Primary care physician: Jj Coronado MD Hospital Course: This is a 75-year-old female with past medical history noted below who presented to the emergency room with chest pain. Patient was evaluated in the ER and admitted to the hospital for further management of her medical problems noted below. 1. ST elevation [place], status post left heart catheterization with successful stent placement to the RCA. Continue optimal medical management per cardiology recommendations. Dual antiplatelet therapy with aspirin and Plavix. Echocardiogram showed preserved EF of 50-55%. 2. Stage III CKD: Creatinine appears stable. 3. Essential hypertension, blood pressure well-controlled with metoprolol. Home dose of valsartan/hydrochlorothiazide has been discontinued 4. Hyperlipidemia: fasting lipid profile showed total cholesterol of 220 and LDL of 158. Currently on Lipitor 80 mg at bedtime Patient will be discharged home in a stable condition. For further details about this hospitalization please refer to the electronic chart. Time spent on discharge > 30 minutes including counseling and coordination of care Patient Condition at Discharge: Stable Plan - Discharge Summary New Discharge Prescriptions: New Aspirin 81 mg PO DAILY #30 chew Clopidogrel [Plavix] 75 mg PO HS #30 tab Atorvastatin [Lipitor] 80 mg PO HS #30 tab Metoprolol Tartrate [Lopressor] 25 mg PO BID #30 tab Continue Levothyroxine Sodium [Synthroid] 100 mcg PO QAM Dicyclomine [Bentyl] 10 mg PO TID PRN PRN Reason: Gi Upset Amitriptyline HCl 25 mg PO HS Albuterol Sulfate [Ventolin HFA] 2 puff INHALATION RT-Q6H PRN PRN Reason: Shortness Of Breath Discontinued Valsartan/Hydrochlorothiazide [Diovan Hct 320-12.5 mg Tab] 1 tab PO DAILY Discharge Medication List Levothyroxine Sodium [Synthroid] 100 mcg PO QAM 05/03/14 [History] Dicyclomine [Bentyl] 10 mg PO TID PRN 03/10/18 [History] Albuterol Sulfate [Ventolin HFA] 2 puff INHALATION RT-Q6H PRN 10/18/20 [History] Amitriptyline HCl 25 mg PO HS 10/18/20 [History] Aspirin 81 mg PO DAILY #30 chew 10/21/20 [Rx] Atorvastatin [Lipitor] 80 mg PO HS #30 tab 10/21/20 [Rx] Clopidogrel [Plavix] 75 mg PO HS #30 tab 10/21/20 [Rx] Metoprolol Tartrate [Lopressor] 25 mg PO BID #30 tab 10/21/20 [Rx] Follow up Appointment(s)/Referral(s): Rehab [facility] ,Cardiac [NON-STAFF] - 1 Week jJ Coronado MD [Primary Care Provider] - 1-2 days
--- NOTE | 2020-10-21 10:19 | P.PN ---
Subjective HISTORY OF PRESENTING ILLNESS 10/19/20: Patient seen and examined. Patient is a pleasant 75 year old female with history of HTN, HLD who presented with chest pain and was found to have inferior STEMI. She underwent successful PCI of the RCA with only mild disease of the left system. She denies any further chest pain or pressure. Echo performed which showed EF 50-55% with basal inferior hypokinesis. 10/20 Patient and seen and examined. Patient states she is followed a large pill last night and has been having indigestion, burping and some chest discomfort which feels different than her angina which brought her to the hospital. She denies any other chest pain, pressure, shortness breath. She has been off of her home antihypertensive medications and only on metoprolol with blood pressure well controlled. Asymptomatic sinus bradycardia noted. 10/21 Patient seen and examined. Patient denies any further chest pain with her indigestion like she had yesterday. Denies any shortness breath. States she is feeling well. REVIEW OF SYSTEMS At the time of my exam: CONSTITUTIONAL: no Complains of fatigue and weakness. Denies fever or chills. CARDIOVASCULAR: Denies chest pain, shortness of breath, orthopnea, PND or palpitations. RESPIRATORY: Denies cough. GASTROINTESTINAL: Denies abdominal pain, diarrhea, constipation, nausea or vomiting. MUSCULOSKELETAL: Denies myalgias. NEUROLOGIC: Denies numbness, tingling, headacbe or weakness. ENDOCRINE: Denies fatigue, weight change, polydipsia or polyurina. GENITOURINARY: Denies burning, hematuria or urgency with micturation. HEMATOLOGIC: Denies history of anemia or bleeding. PHYSICAL EXAMINATION Vitals reviewed CONSTITUTIONAL: No apparent distress. HEENT: Head is normocephalic. Pupils are equal, round. Mucous membranes of the mouth are dry. No JVD. No carotid bruit. CHEST EXAMINATION: Lungs are clear to auscultation. No chest wall tenderness is noted on palpation or with deep breathing. HEART EXAMINATION: Regular rate and rhythm. S1, S2 heard. No murmurs, gallops or rub. ABDOMEN: Soft, Positive bowel sounds. EXTREMITIES: 2+ peripheral pulses, no LE edema NEUROLOGIC EXAMINATION: No focal deficits noted ASSESSMENT Inferior STEMI s/p PCI of RCA 10/18/2020 Essential hypertension Hyperlipidemia Leukocytosis, likely reactive CKD, improved from baseline PLAN Patient is s/p successful PCI of RCA. EF shows plow normal EF 50-55% with only mild inferior hypokinesis. Okay for DC home with outpatient follow-up in 1 week. Objective - Vital Signs Vital signs: Vital Signs Temp 98.6 F 10/21/20 07:42 Pulse 65 10/21/20 07:42 Resp 16 10/21/20 07:42 BP 113/67 10/21/20 07:42 Pulse Ox 97 10/21/20 07:42 Intake & Output 10/20/20 10/21/20 10/21/20 18:59 06:59 18:59 Intake Total 480 240 Balance 480 240 Weight 82.3 kg Intake: Oral 480 240 Other: Voiding Method Toilet Toilet Toilet # Voids 1 1 - Labs CBC & Chem 7: 10/20/20 07:29 10/20/20 07:29
[2020-10-21 12:26] VITALS: BP 106/67; PULSE 62; TEMP 97.7
== END 2020-10-21 13:22 | disposition home or self-care (01) | DRG 247 ==
LOC: EC 19:13 → 2SICU 19:54 → 3SCARD 10-19 11:11
PROVIDERS: ADMIT Internal Medicine; ATTEND Internal Medicine
PROC: B2111ZZ Fluoroscopy of Multiple Coronary Arteries using Low Osmolar Contrast (ICD-10-PCS; 2020-10-18)
PROC: 027035Z Dilation of Coronary Artery, One Artery with Two Drug-eluting Intraluminal Devices, Percutaneous Approach (ICD-10-PCS; principal; 2020-10-18 19:30)
PROC: 4A023N7 Measurement of Cardiac Sampling and Pressure, Left Heart, Percutaneous Approach (ICD-10-PCS; 2020-10-18 19:30)
DX: I21.19 ST elevation (STEMI) myocardial infarction involving other coronary artery of inferior wall (principal); I25.119 Atherosclerotic heart disease of native coronary artery with unspecified angina pectoris; J45.20 Mild intermittent asthma, uncomplicated; D72.829 Elevated white blood cell count, unspecified; E11.22 Type 2 diabetes mellitus with diabetic chronic kidney disease; E78.5 Hyperlipidemia, unspecified; E89.0 Postprocedural hypothyroidism; Z96.651 Presence of right artificial knee joint; I12.9 Hypertensive chronic kidney disease with stage 1 through stage 4 chronic kidney disease, or unspecified chronic kidney disease; N18.30 Chronic kidney disease, stage 3 unspecified; Z79.890 Hormone replacement therapy; Z79.899 Other long term (current) drug therapy; Z90.710 Acquired absence of both cervix and uterus; Z98.61 Coronary angioplasty status; Z88.7 Allergy status to serum and vaccine; Z90.49 Acquired absence of other specified parts of digestive tract
CPT/HCPCS: 36415; 71045; 80048; 80053; 80061; 83036; 84484; 85025; 85610; 85730; 93005; 93306; 93458; 96374; 99285

== ENCOUNTER 2024-06-20 14:28 | Emergency (ER) | payer MEDICARE ==
[2024-06-20 14:43] VITALS: RESP 18
[2024-06-20] MEDS: KETOROLAC 15 MG/ML 1 ML VIAL IM STA (15:31)
[2024-06-20] MEDS: DEXAMETHASONE SOD PHOSPHATE 10 MG/ML 1 ML VIAL IM STA (15:32)
[2024-06-20] MEDS: CYCLOBENZAPRINE 10 MG TAB PO STA (15:32)
--- NOTE | 2024-06-20 16:00 | ED ---
Back Pain HPI - General Chief Complaint: Back Pain/Injury Stated Complaint: Sciadic nerve issue Time Seen by Provider: 06/20/24 16:00 Source: patient, RN notes reviewed Mode of arrival: ambulatory Limitations: no limitations - History of Present Illness Initial Comments: 78-year-old female presented to the ER for evaluation of right leg pain. Patient reports she has known sciatica and has been having a flare for the past week. She was seen by PCP and started on 5 mg of Flexeril. She states she took 1 dose without any relief so stopped taking the medication. She reports pain starts in her buttocks and travels down below her knee. She reports it is difficult to ambulate due to this. She denies any injuries or traumas. Denies any rashes. Denies bowel or bladder incontinence, saddle paresthesias, fevers or history of IV drug use. Patient is currently scheduled for an MRI after insurance approval through PCP. - Related Data Home Medications Medication Instructions Recorded Confirmed Levothyroxine Sodium [Synthroid] 100 mcg PO QAM 05/03/14 10/18/20 Dicyclomine [Bentyl] 10 mg PO TID PRN 03/10/18 10/18/20 Albuterol Sulfate [Ventolin HFA] 2 puff INHALATION RT-Q6H PRN 10/18/20 10/18/20 Amitriptyline HCl 25 mg PO HS 10/18/20 10/18/20 Previous Rx's Medication Instructions Recorded Aspirin 81 mg PO DAILY #30 chew 10/21/20 Atorvastatin [Lipitor] 80 mg PO HS #30 tab 10/21/20 Clopidogrel [Plavix] 75 mg PO HS #30 tab 10/21/20 Metoprolol Tartrate [Lopressor] 25 mg PO BID #30 tab 10/21/20 Cyclobenzaprine [Flexeril] 10 mg PO TID PRN #15 tab 06/20/24 Ibuprofen [Motrin] 600 mg PO Q8HR PRN #30 tab 06/20/24 Allergies Allergy/AdvReac Type Severity Reaction Status Date / Time Tetanus Vaccines and Toxoid Allergy Rash/Hives Verified 06/20/24 14:39 [Tetanus Vaccines & Toxoid] Review of Systems ROS Statement: Those systems with pertinent positive or pertinent negative responses have been documented in the HPI. ROS Other: All systems not noted in ROS Statement are negative. Past Medical History Past Medical History: Asthma, GERD/Reflux, Hypertension, Thyroid Disorder History of Any Multi-Drug Resistant Organisms: None Reported Past Surgical History: Appendectomy, Cholecystectomy, Hysterectomy, Joint Replacement Additional Past Surgical History / Comment(s): THYROIDECTOMY; R Knee replacement Past Anesthesia/Blood Transfusion Reactions: Postoperative Nausea & Vomiting (PONV) Past Psychological History: No Psychological Hx Reported Smoking Status: Never smoker Past Alcohol Use History: Occasional Past Drug Use History: None Reported - Past Family History Mother Family Medical History: No Reported History General Exam Limitations: no limitations General appearance: alert, in no apparent distress Respiratory exam: Present: normal lung sounds bilaterally. Absent: respiratory distress, wheezes, rales, rhonchi, stridor Cardiovascular Exam: Present: regular rate, normal rhythm, normal heart sounds. Absent: systolic murmur, diastolic murmur, rubs, gallop, clicks Extremities exam: Present: normal inspection, full ROM, normal capillary refill, other (2+ bilateral PT and DP pulses.). Absent: tenderness, pedal edema, joint swelling, calf tenderness Back exam: Present: normal inspection Neurological exam: Present: alert, oriented X3, CN II-XII intact Skin exam: Present: warm, dry, intact, normal color. Absent: rash Course Vital Signs 06/20/24 06/20/24 14:40 17:45 Temperature 98.5 F 97.9 F Pulse Rate 99 81 Respiratory 18 18 Rate Blood Pressure 133/70 131/71 O2 Sat by Pulse 99 97 Oximetry Medical Decision Making - Medical Decision Making Was pt. sent in by a medical professional or institution (, PA, FINAL INSPECTOR, urgent care, hospital, or fdc...) When possible be specific @ -No Did you speak to anyone other than the patient for history (EMS, parent, family, police, friend...)? What history was obtained from this source @ -No Did you review nursing and triage notes (agree or disagree)? Why? @ -I reviewed and agree with nursing and triage notes Were old charts reviewed (outside hosp., previous admission, EMS record, old EKG, old radiological studies, urgent care reports/EKG's, fdc records)? Report findings @ -No old charts were reviewed Differential Diagnosis (chest pain, altered mental status, abdominal pain women, abdominal pain men, vaginal bleeding, weakness, fever, dyspnea, syncope, headache, dizziness, GI bleed, back pain, seizure, CVA, palpatations, mental health, musculoskeletal)? @ -Differential Back Pain:Strain, zoster, cauda equina syndrome, epidural abscess, vertebral osteomyelitis, discitis, fracture, subluxation, disc herniation, DJD, spinal stenosis, dissection, AAA, pancreatitis, peptic ulcer disease, pyelonephritis, kidney stone, this is not meant to be an all-inclusive list. EKG interpreted by me (3pts min.). @ -None done X-rays interpreted by me (1pt min.). @ -Lumbar spine x-rays interpreted by me negative for acute osseous process. CT interpreted by me (1pt min.). @ -None done U/S interpreted by me (1pt. min.). @ -None done What testing was considered but not performed or refused? (CT, X-rays, U/S, labs)? Why? @ -None What meds were considered but not given or refused? Why? @ -None Did you discuss the management of the patient with other professionals (professionals i.e. , PA, FINAL INSPECTOR, lab, RT, psych nurse, licensed clinical social worker, summer child caregiver, teacher, mechanical engineering officer, pillowcase maker)? Give summary @ -No Was smoking cessation discussed for >3mins.? @ -No Was critical care preformed (if so, how long)? @ -No Were there social determinants of health that impacted care today? How? (Homelessness, low income, unemployed, alcoholism, drug addiction, transportation, low edu. Level, literacy, decrease access to med. care, [facility], r ehab)? @ -No Was there de-escalation of care discussed even if they declined (Discuss DNR or withdrawal of care, Hospice)? DNR status @ -No What co-morbidities impacted this encounter? (DM, HTN, Smoking, COPD, CAD, Cancer, CVA, ARF, Chemo, Hep., AIDS, mental health diagnosis, sleep apnea, morbid obesity)? @ -None Was patient admitted / discharged? Hospital course, mention meds given and route, prescriptions, significant lab abnormalities, going to OR and other pertinent info. @ -Discharge. 78-year-old female presented to ER for evaluation of right sciatic pain. History and physical exam completed. Upon evaluation, patient resting comfortably in recliner vital stable. No signs of acute distress. Patient is neurovascularly intact. No symptoms indicative of cauda equina sy ndrome. X-rays obtained negative for acute osseous process. Patient received symptomatic treatment with IM Decadron, Toradol and Flexeril. Upon reevaluation, patient resting comfortably in exam room no signs of acute distress. Patient report mild improvement of pain and is eager for discharge. 10 mg Flexeril prescribed. Advised patient to continue using [id number] ibuprofen and Tylenol for pain control outpatient. I strongly encouraged her to follow-up with PCP and obtain MRI for further evaluation. Patient is stable for discharge. Strict return parameters discussed. Patient discharged in stable condition with follow-up to PCP. Patient verbally expressed understanding and agreement with care plan. Case discussed with ED attending, Dr. Cazares. Undiagnosed new problem with uncertain prognosis? @ -No Drug Therapy requiring intensive monitoring for toxicity (Heparin, Nitro, Insulin, Cardizem)? @ -No Were any procedures done? @ -No Diagnosis/symptom? @ -Sciatica Acute, or Chronic, or Acute on Chronic? @ -Acute Uncomplicated (without systemic symptoms) or Complicated (systemic symptoms)? @ -Uncomplicated Side effects of treatment? @ -No Exacerbation, Progression, or Severe Exacerbation? @ -No Poses a threat to life or bodily function? How? (Chest pain, [place], [place], pneumonia, PE, COPD, DKA, ARF, appy, cholecystitis, CVA, Diverticulitis, Homicidal, S uicidal, threat to staff... and all critical care pts) @ -No - Radiology Data Radiology results: report reviewed, image reviewed Disposition Clinical Impression: Sciatica Disposition: HOME SELF-CARE Condition: Stable Instructions (If sedation given, give patient instructions): Sciatica (ED), Acute Low Back Pain (ED), Piriformis Syndrome (ED), Lower Back Exercises (ED) Additional Instructions: Follow-up with PCP. Return to the ER for any new or worsening concerns. Prescriptions: Cyclobenzaprine [Flexeril] 10 mg PO TID PRN #15 tab PRN Reason: Muscle Spasm Ibuprofen [Motrin] 600 mg PO Q8HR PRN #30 tab PRN Reason: Pain Is patient prescribed a controlled substance at d/c from ED?: No Referrals: Jj Coronado MD [Primary Care Provider] - 1-2 days Time of Disposition: 17:11
--- NOTE | 2024-06-20 16:26 | XR ---
EXAMINATION TYPE: XR lumbar spine 2 or 3V DATE OF EXAM: 06/20/2024 4:04 PM COMPARISON: None available. CLINICAL INDICATION: Female, 78 years old with history of sciatic nerve; [facility] TECHNIQUE: XR lumbar spine 2 or 3V - Frontal, lateral and coned in L5-S1 lateral views of the spine. FINDINGS: 5 lumbar type vertebral bodies are positioned for the purposes of this examination. No defi nite acute fracture or dislocation. Multilevel intervertebral disc space loss, most pronounced at L4- L5. Multilevel anterior ossified formation. Lumbar spine vertebral body heights are grossly maintaine d. Grade 1 anterolisthesis of L4 and L5. Disc cholecystectomy. Multilevel facet arthropathy, most pro nounced at L4-5 and L5-S1. IMPRESSION: 1. No acute fracture or traumatic subluxation. 2. Multilevel lumbosacral spine degenerative changes as above. [facility], , 06/20/2024 4:23 PM
[2024-06-20 17:47] VITALS: BP 131/71; PULSE 81; TEMP 97.9
== END 2024-06-20 17:47 | disposition home or self-care (01) ==
LOC: EC 14:28
DX: M54.31 Sciatica, right side (principal); Z88.7 Allergy status to serum and vaccine
CPT/HCPCS: 72100; 99283; 96372 ×2; J1100; J1885